=== PATIENT | female | born 1950 | race Caucasian/White ===

== ENCOUNTER 2020-11-09 12:25 | Emergency (ER) | payer MEDICARE, OTHER ==
[~2020-11-09] VITALS: Ht 162.6 cm; Wt 63.0 kg
--- NOTE | 2020-11-09 12:32 | NUR ---
PT CAME IN CO OF [facility]. "I WAS WALKING IN THE [place] AND TRIPPED OVER MY SHOES AND FELL DOWN. I DID NOT FEEL DIZZY OR HAVE A LOC". PT REPORTS LEFT SHOULDER PAIN, CMS INTACT. PT RECIEVED A TOTAL OF 100MCG OF FENTAYL AND 1MG VERSED ENVIRONMENTAL HEALTH SAFETY MANAGER. PT RESTING IN [facility]. AWAITING
[2020-11-09] MEDS ORDERED: MORPHINE SULFATE 4 MG/ML, 1ML ONE (12:47)
[2020-11-09] MEDS ORDERED: ONDANSETRON 2MG/ML, 2ML ONE (12:47)
[2020-11-09] MEDS ORDERED: ONDANSETRON 2MG/ML, 2ML IVPush ONE (13:00)
[2020-11-09] MEDS ORDERED: MORPHINE SULFATE 4 MG/ML, 1ML IVPush PRN (13:00)
[2020-11-09] MEDS ORDERED: SODIUM CHLORIDE FLUSH 10ML SYR IVF ONE (13:00)
--- NOTE | 2020-11-09 13:13 | NUR ---
REPORT FROM DIANNE GODOY. ASSUMING CARE. PT AT XRAY. IN ROOM.
--- NOTE | 2020-11-09 13:22 | NUR ---
BREAK RN: PT BACK FROM CT SCAN Addendum: 11/09/20 at 1322 by ASIM BREAK RN: PT BACK FROM X RAY
--- NOTE | 2020-11-09 14:11 | NUR ---
PT RESTING IN BED. REQUESTING WARM BLANKET AND WATER. THIS RN TO ASK MD IF WATER OKAY. VSS. MARCIA. AT BEDSIDE.
[2020-11-09 15:28] VITALS: BP 157/86
--- NOTE | 2020-11-09 15:31 | NUR ---
DPatient/Caregiver given discharge instructions and they have confirmed that they understand the instructions. Patient ambulatory with steady gait.
== END 2020-11-09 15:30 | disposition home or self-care (01) ==
LOC: ED 15:00
DX: S42.255A Nondisplaced fracture of greater tuberosity of left humerus, initial encounter for closed fracture (principal); W01.0XXA Fall on same level from slipping, tripping and stumbling without subsequent striking against object, initial encounter; Y93.89 Activity, other specified; Y92.59 Other trade areas as the place of occurrence of the external cause; Y99.8 Other external cause status
CPT/HCPCS: 29105; 73030; 73060; 73080; 93005; 96374; 96375; 99284; J2270; J2405